=== PATIENT | male | born 1940 | race Caucasian/White ===

== ENCOUNTER → 2017-06-26 | Day surgery (SDC) | payer OTHER ==
--- NOTE | 2017-06-25 20:58 | Procedure Note ---
Procedure Note Date of Service Jun 25, 2017. Procedure Note 77-year-old male here for bronchoscopic evaluation of lung mass. Prior records reviewed. PMHx includes: anemia, cardiomyopathy, congestive heart failure, COPD, diabetes mellitus type 2, GERD, hyperlipidemia, LBBB, s/p cardiac pacemaker. Patient is this is a former smoker smoking 1.5 packs per day times 65 years quit 2012. 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 - Use of coal stove throughout childhood for heat with exposure to coal dust. -Patient's father was diagnosed with silicosis and he was a brick yard/[employer] worker Patient established in the office early April [address] 03/26/17 notable for right hilar mass: 6 x 3.4cm with associated right hilar lymphadenopathy and multiple pulmonary nodules (largest adjacent 2.4 x 1.7cm). He had been symptomatic of hemoptysis and right rib pain beginning Fall 2016 persistent despite several rounds o antibiotics prompting this work-up. Patient presents today post PET-CT and pulmonary function tests. Apparently he did have a swallow test as well however the results are not yet available. his PET-CT was delayed although we did request to be as soon as possible secondary to his limitation of completing testing in [facility]. PET-CT 05/24/2017, PFT 04/23/2017 were reviewed with the patient and his in detail (as below). On exam/interview today patient reports clinically he is doing very well. He states that his cough has resolved with use of Mucinex/generic. He denies any fevers or chills. He denies any progressive chest pain he or parenchymal disease. I did review his images with Dr. Edwards prior to his appointment today. PET-CT (reviewed) 05/24/17: This study demonstrates SUV max 21.4 in the right lower lobe mass lesion with direct extension into the right hilum. There were additional discrete right hilar and right lateral mediastinal lymph nodes with the largest lymph node in the subcarinal right lateral of midline measuring SUV max 7.5 and 10 x 15 mm. The smaller adjacent RLL posterior medial nodule demonstrated SUV max 5.6. Contralateral left upper lobe nodular appearing areas of airspace disease had no measurable soft tissue component but measure SUV 4. Hypermetabolic destructive lesion identified in the right posterior medial 10th rib appear to be pathologic SUV 12.4. Also noted was bilateral maxillary sinusitis. PFT 04/23/2017: FVC: 1.37/34 % (41 % change), FEV1: 1.23/39 % (13 % change), FEV1/FVC: 89 %, FEF 25-75 %: 1.45/47 %, FVC: 1.4/35 %, T.6/56 %, RV: 84 %, DLCO: 49 %. Active Problems 1. Anemia (D64.9) 2. 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 Cardiac pacemaker in situ (Z95.0) 4. Cardiomyopathy (I42.9) 5. CHF (congestive heart failure) (I50.9) 6. Sever COPD (FEV1: 44%) 7. Cobalamin deficiency (E53.8) 8. Diabetes (E11.9) 9. DM type 2 (diabetes mellitus, type 2) (E11.9) 10. Dysphagia (R13.10) 11. Dyspnea (R06.00) 12. Former smoker (Z87.891) 13. GERD (gastroesophageal reflux disease) (K21.9) 14. Gout (M10.9) 15. Hemoptysis (R04.2) 16. Hilar mass (R91.8) 17. History of claustrophobia 18. Hyperlipidemia, mixed (E78.2) 19. Left bundle branch block (I44.7) 20. Lung nodule, solitary (R91.1) 21. Pain and swelling of right lower leg (M79.661,M79.89) 22. Pneumonia (J18.9) 23. Proteinuria (R80.9) 24. Toxic effect of tobacco and nicotine (T65.291A) 25. Vitamin D deficiency (E55.9) Social History Former smoker (Z87.891) Current Meds 1. LORazepam 0.5 MG Oral Tablet; take 1 tablet PO 30-minutes prior to PET-CT; 2. LORazepam 0.5 MG Oral Tablet; take 1 tablet PO 60-minutes prior to PET-CT; 3. Bumetanide 1 MG Oral Tablet; TAKE 1 TABLET DAILY NEEDED; 4. Carvedilol 12.5 MG Oral Tablet; TAKE 1 TABLET TWICE DAILY; 5. Coreg 6.25 MG Oral Tablet; TAKE 1 TABLET BY MOUTH TWICE DAILY WITH MEALS; 6. Ecotrin Low Strength 81 MG Oral Tablet Delayed Release; TAKE 1 TABLET DAILY 7. Fish Oil 1000 MG Oral Capsule; 8. HumaLOG KwikPen 200 UNIT/ML Subcutaneous Solution Pen-injector; 9. Omeprazole 20 MG Oral Capsule Delayed Release; TAKE ONE CAPSULE BY MOUTH 10. Oxybutynin Chloride 5 MG Oral Tablet; 11. Pravastatin Sodium 80 MG Oral Tablet; Take 1 tablet by mouth daily; 12. Sulfamethoxazole-Trimethoprim 800-160 MG Oral Tablet; Take 1 tablet twice daily; 13. TraMADol HCl - 50 MG Oral Tablet; TAKE 1 OR 2 TABLETS EVERY 8 HOURS 14. Tresiba FlexTouch 200 UNIT/ML Subcutaneous Solution Pen-injector; INJECT 15. Ventolin HFA 108 (90 Base) MCG/ACT Inhalation Aerosol Solution; INHALE 2 PUFFS Allergies 1. No Known Drug Allergies Vital Signs Weight: 237 lb 4 oz BMI Calculated: 33.09 BSA Calculated: 2.27 Blood Pressure: 134 / 62 Respiration: 18 Heart Rate: 78 O2 Saturation: 96, RA Temperature: 97.6 F Constitutional: Well developed, well nourished male. No acute distress. Head: + facial symmetry Eyes: EOMi, PERRLA, no conjunctival injection Mouth: No erythema, exudate, or post nasal gtt Neck: Trachea midline. No adenopathy or masses Respiratory: Non-labored respirations. Diminished at bases with slight prolongation of expiratory phase. Harsh wheeze on forced expiration. No rhonchi. No clubbing or cyanosis. Cardiovascular: Regular rate. No MRG. +2 radial pulses. <1s capillary refill. Abdomen: soft, active bowel sounds Integumentary: no rashes, or ecchymosis MSK/Extremities: Moving and developed symmetrically. No calf tenderness. Neurologic: A&O, data recall in-tact. Appropriate affect.
[~2017-06-26] VITALS: Ht 180.3 cm; Wt 104.0 kg
[~2017-06-26] MED LIST: ALLO300T2 PO; ASPI-428 PO; BUME1TAB PO; CARV6.252 PO; DTR/5 PO; FENTANYL CITRATE INJ 50 MCG/1 ML 2 ML VIAL IV ONE; HMLI7525 SC; HYDR-4715 PO; HydrALAZINE HCL 20 MG/ML VIAL IV. ONE; HydrALAZINE HCL 20 MG/ML VIAL ONE; ISOS30TA3 PO; LIDOCAINE 4% INH SOLN 4 ML BTL NEB ONE; LIDOCAINE HCL 2% LOCAL 50ML VIAL INSTIL ONE; LIDOCAINE VISCOUS 2% 100ML TOP ONE; LISI-461 PO; MIDAZOLAM HCL 5 MG/ML 1 ML VIAL IV ONE; NSS 1000ML IV SCH; NURSING VERBAL MED ORDER ONE; OMEG10007 PO; POTA10CA28 PO; PRAV20TA PO; PRLSR20 PO; [UNRECOGNIZED DRUG - OTHER] PO
[2017-06-26 09:04] VITALS: BP 180/89; PULSE 86; TEMP 36.4; O2SAT 97; Ht 180.3 cm; Wt 104.0 kg
--- NOTE | 2017-06-26 10:04 | Pre Sedation Assessment ---
Pre Sedation Assessment General Date of Sedation: Jun 26, 2017. Vital Signs Past 12 Hours Date Time Temp Pulse Resp B/P (MAP) Pulse Ox O2 Delivery O2 Flow Rate FiO2 06/26/17 09:04 36.4 86 18 180/89 (119) 97 Room Air Review Cardiovascular: regular rate, rhythm, no edema, no gallop, no JVD, no murmur, normal peripheral pulses Lungs: chest non-tender, lungs clear, normal breath sounds, no respiratory distress, no accessory muscle use Pre-Sedation Airway Assessment Smoking Status: Former Smoker Hx of Sleep Apnea: No Short Thick Neck: Yes Thyro-mental Distance: > 3 Finger Breadths Oral Cavity: WNL Mallampati Classification: Class III ASA Classification: Class II NPO Status Date of Last Intake of Fluids: Jun 25, 2017 Time of Last Intake of Fluids: 2099 Date of Last Intake of Solids: Jun 25, 2017 Time of Last Intake of Solids: 2099 Procedure Planning Contraindications for Sedation: None Current Medications Reviewed: Yes Notes The planned sedation has been discussed with the patient. Informed Consent was obtained. I have identified the patient, determined the appropriateness of sedation and have assessed the patient immediately prior to the procedure. All medicine(s) and interventions are by my order.
--- NOTE | 2017-06-26 12:18 | Discharge Instructions ---
Discharge Instructions Date of Service Jun 26, 2017. Admission Reason for Admission: Lung Nodule, Copd W/Cytology Discharge Discharge Diagnosis / Problem: Lung Cancer Discharge Goals Goal(s): Diagnostic testing Activity Recommendations Activity Limitations: resume your previous activity Driving or Machine Use: resume 1 day after discharge . Instructions / Follow-Up Instructions / Follow-Up In the Pulmonary Clinic Current Hospital Diet Patient's current hospital diet: Discharge Diet Recommended Diet: Regular Diet Procedures Procedures Performed: Bronchoscopy, Needle aspiration, bronchial lavage and forcep biospey of the right loer lobe Pending Studies Studies pending at discharge: no Medical Emergencies . Who to Call and When: Medical Emergencies: If at any time you feel your situation is an emergency, please call 911 immediately. . Non-Emergent Contact Non-Emergency issues call your: Pharmacovigilance Specialist Call Non-Emergent contact if: temperature is above 101 . . "Provider Documentation" section prepared by Sanjeev Edwards. .
--- NOTE | 2017-06-26 12:22 | Bronchoscopy Procedure Note ---
Bronchoscopy Procedure Note Procedure: Bronchoscopy, conscious sedation, bronchial lavage needle aspiration and forceps biopsy Consent: Obtained through the patient placed into the chart Pre-procedural diagnosis: lung nodule Post-procedural diagnosis: lung cancer Start time: 1136 End time: 1211 Total time: minutes Analgesia: 2% liquid lidocaine: Via nebulizer 4% gel lidocaine: Via right naris 2% liquid lidocaine: Via bronchoscopy Sedation: Versed IV: 6mg Fentanyl IV: 100 g Procedure: The Octavian video bronchoscope was used for this procedure and passed down through the right naris Right naris/posterior naris/posterior oropharynx: Anatomically within normal limits Glottis: Anatomically within normal limits Vocal cords: Proper abduction and abduction, anatomically within normal limits Subglottis/trachea/Thais: Anatomically within normal limits Right bronchial tree: Right mainstem bronchus: Anatomically within normal limits Right upper lobe: Anatomically within normal limits Bronchus intermedius: Anatomically within normal limits Right middle lobe: Anatomically within normal limits Right lower lobe: intr-bronchial mass obstructing the tack-off to the RLL Left bronchial tree: Left mainstem bronchus: Anatomically within normal limits Left upper lobe: Anatomically within normal limits Lingula: Anatomically within normal limits Left lower lobe: Anatomically within normal limits Findings: No significant findings noted Bronchial alveolar lavage: RLL mass FNA: RLL mass Forceps Bx: RLL mass EBL: 5cc Complications: None Follow-up: ASU
[2017-06-26 12:40] VITALS: BP 141/64; PULSE 86; TEMP 36.6; O2SAT 94
[2017-06-26 13:05] VITALS: BP 145/70; PULSE 83; O2SAT 95
[2017-06-26 13:45] VITALS: BP 143/60; PULSE 85; TEMP 36.5; O2SAT 95
[2017-06-26 14:20] VITALS: BP 159/81; PULSE 88; TEMP 36.5; O2SAT 93
[2017-06-26 14:40] VITALS: BP 142/75; PULSE 88; TEMP 36.4; O2SAT 94
== END | disposition home or self-care (01) ==
LOC: C.ACU 08:13
PROVIDERS: ATTEND Internal Medicine Critical Care Medicine
DX: C34.31 Malignant neoplasm of lower lobe, right bronchus or lung (principal); J44.9 Chronic obstructive pulmonary disease, unspecified; I42.9 Cardiomyopathy, unspecified; D64.9 Anemia, unspecified; I50.9 Heart failure, unspecified; E11.9 Type 2 diabetes mellitus without complications; K21.9 Gastro-esophageal reflux disease without esophagitis; E78.5 Hyperlipidemia, unspecified; I44.7 Left bundle-branch block, unspecified; Z95.0 Presence of cardiac pacemaker

== ENCOUNTER → 2017-08-15 | Outpatient (CLI) | payer OTHER ==
[~2017-08-15] MED LIST changes: -FENTANYL CITRATE INJ 50 MCG/1 ML 2 ML VIAL IV ONE; -HYDR-4715 PO; +HYDR-4717 PO; -HydrALAZINE HCL 20 MG/ML VIAL IV. ONE; -HydrALAZINE HCL 20 MG/ML VIAL ONE; -LIDOCAINE 4% INH SOLN 4 ML BTL NEB ONE; -LIDOCAINE HCL 2% LOCAL 50ML VIAL INSTIL ONE; -LIDOCAINE VISCOUS 2% 100ML TOP ONE; -MIDAZOLAM HCL 5 MG/ML 1 ML VIAL IV ONE; -NSS 1000ML IV SCH; -NURSING VERBAL MED ORDER ONE; +POTA-639 PO
== END | disposition home or self-care (01) ==
LOC: C.PATHSPEC 12:47
PROVIDERS: ATTEND Internal Medicine Critical Care Medicine
DX: C34.11 Malignant neoplasm of upper lobe, right bronchus or lung (principal)

== ENCOUNTER → 2017-11-05 | Outpatient (CLI) | payer OTHER ==
[~2017-11-05] MED LIST changes: +OPTIRAY 320 IV PRN
--- NOTE | 2017-11-05 08:46 | DIAGNOSTIC IMAGING REPORT ---
(CHEST) THORAX WITHOUT CT DOSE: 529.49 mGy.cm HISTORY: Lung carcinoma LUNG CA CR OF 1.72 DO W/O MCS TECHNIQUE: Multiaxial CT images of the chest were performed without contrast. A dose lowering technique was utilized adhering to the principles of ALARA. COMPARISON: PET scan 05/24/2017 FINDINGS: Improved study compared to the prior exam. The right hilar/perihilar mass/infiltrative change has improved by approximate 50% in terms of volume. Parenchymal nodularity posterior aspect right lower lobe is considerably diminished. There is a trace amount of pleural reactive change posterior aspect right hemithorax on a post therapeutic bases. Parenchymal nodularity is considerably diminished with a moderate residual measuring to 1.4 cm. The right lower lobe parenchymal nodularity has improved by no less than 50-70% in terms of volume. There are slight interstitial changes right mid and lower lung most likely on a post therapeutic bases. There is atelectatic change and ectasia of the thoracic aorta with no evidence for aneurysm. There is no significant mediastinal adenopathy. Heart is mildly enlarged. There is slight pericardial thickening unchanged in the prior study. IMPRESSION: 1. Improved exam compared to the prior study. 2. Right hilar mass is considerably diminished in size with parenchymal and pleural-based nodularity of the right lower lobe considerably diminished in terms of 1:00 AM as well as size. 3. No evidence for progressive neoplastic change. The above report was generated using voice recognition software. It may contain grammatical, syntax or spelling errors. Electronically signed by: Shaheen Brand M.D. 11/05/2017 8:45 AM Dictated Date/Time: 11/05/2017 8:28 AM
== END | disposition home or self-care (01) ==
LOC: C.CTS 08:13
PROVIDERS: ATTEND Internal Medicine Hematology & Oncology
DX: C34.11 Malignant neoplasm of upper lobe, right bronchus or lung (principal); R39.9 Unspecified symptoms and signs involving the genitourinary system